=== PATIENT | male | born 1935 | race Caucasian/White ===

== ENCOUNTER → 2017-01-22 | Outpatient (CLI) | payer MEDICARE, BC ==
[~2017-01-22] MED LIST: ASCO-297 PO; ZINC50TA PO
[2017-01-22 18:57] LABS: BASOPHILS % (AUTO) 0.7 % (0-2); EOSINOPHILS # (AUTO) 0.3 T/MM3 (0-0.5); EOSINOPHILS % (AUTO) 4.9 % (0-4); HCT - HEMATOCRIT 36.6 % (41-53); HGB - HEMOGLOBIN 11.4 GM/DL (13.5-17.5); IMMATURE GRANULOCYTE # (AUTO) 0.01 T/MM3 (0.00-0.03); IMMATURE GRANULOCYTE % (AUTO) 0.2 % (0.0-0.5); LYMPHOCYTES # (AUTO) 1.3 T/MM3 (1-4.8); LYMPHOCYTES % (AUTO) 23.5 % (23-45); MEAN CORPUSCULAR HGB 32.1 UUG (26-34); MEAN CORPUSCULAR HGB CONC(MCHC 31.1 GM/DL (31-37); MEAN CORPUSCULAR VOLUME 103.1 UM3 (80-100); MEAN PLATELET VOLUME 11.8 UM3 (9.4-12.4); MONOCYTES # (AUTO) 0.6 T/MM3 (0-0.8); MONOCYTES % (AUTO) 10.1 % (0-9.0); NEUTROPHILS #(AUTO)-ABSOLUTE 3.4 T/MM3 (1.8-7.7); NEUTROPHILS % (AUTO) 60.6 % (33-66); RED BLOOD COUNT 3.55 M/MM3 (4.50-5.90); WBC - WHITE BLOOD COUNT 5.7 T/MM3 (4.5-11.0)
[2017-01-22 19:05] LABS: ALBUMIN 3.8 G/DL (3.5-5.0); ALBUMIN/GLOBULIN RATIO 1.2 RATIO (1.1-2.2); ALKALINE PHOSPHATASE 70 U/L (38-126); ALT (SGPT) 23 U/L (21-72); ANION GAP 15 MEQ/L (5-15); AST (SGOT) 26 U/L (17-59); BUN/CREATININE RATIO 22 RATIO (6-26); CALCIUM 9.1 MG/DL (8.4-10.2); CHLORIDE 106 MEQ/L (98-107); CO2 - CARBON DIOXIDE 26 MEQ/L (22-30); CREATININE 1.5 MG/DL (0.8-1.5); GLOMERULAR FILTRATION RATE 45; GLUCOSE 109 MG/DL (75-110); MAGNESIUM 2.3 MG/DL (1.6-2.3); POTASSIUM 4.5 MEQ/L (3.6-5); SODIUM 147 MEQ/L (134-144); TOTAL PROTEIN 7.1 G/DL (6.3-8.2)
[2017-01-22 19:14] LABS: PROBNP 3840 PG/ML (0-175)
--- NOTE | 2017-01-23 09:08 | DI ---
INDICATION: ITS.REASON: J20.9 ACUTE BRONCHITIS PROCEDURE: CHEST 2-VIEWS UPRIGHT (PA \T\ LAT) Encounter: Initial COMPARISON: None FINDINGS: Mild interstitial prominence in the right base without focal lobar consolidation. There is no pleural effusion or pneumothorax. The heart size, mediastinal contours and pulmonary vascularity are within normal limits. Chronic rotator cuff tears. Degenerative change in the spine. IMPRESSION: Mild right basilar opacity could be due to atypical pneumonia/bronchitis. .
== END ==
LOC: IMA 18:06
PROVIDERS: ATTEND Family Medicine
DX: R91.8 Other nonspecific abnormal finding of lung field (principal); R01.0 Benign and innocent cardiac murmurs; R53.83 Other fatigue; J20.9 Acute bronchitis, unspecified
CPT/HCPCS: 36415; 80053; 83735; 83880; 84443; 84484; 85025; 93005

== ENCOUNTER → 2017-02-06 | Outpatient (CLI) | payer MEDICARE, BC ==
--- NOTE | 2017-02-06 10:23 | DI ---
INDICATION: ITS.REASON: J18.9 PNEUMONIA, UNSPECIFIED ORGANISM PROCEDURE: CHEST 2-VIEWS UPRIGHT (PA \T\ LAT) Encounter: Initial COMPARISON: January 22, 2017 FINDINGS: Prior right basilar airspace disease has cleared. No new airspace consolidation. No pleural effusion or pneumothorax. Heart size and mediastinal contours are stable. Tortuous ectatic thoracic aorta. Impression: Clearance of the right lower lobe infiltrate. .
== END ==
LOC: IMA 09:54
PROVIDERS: ATTEND Family Medicine
DX: J18.9 Pneumonia, unspecified organism (principal)

== ENCOUNTER → 2017-02-23 | Outpatient (CLI) | payer MEDICARE, BC ==
[2017-02-23 10:18] LABS: BASOPHILS % (AUTO) 0.7 % (0-2); EOSINOPHILS # (AUTO) 0.2 T/MM3 (0-0.5); EOSINOPHILS % (AUTO) 4.2 % (0-4); HCT - HEMATOCRIT 38.3 % (41-53); HGB - HEMOGLOBIN 12.3 GM/DL (13.5-17.5); IMMATURE GRANULOCYTE # (AUTO) 0.01 T/MM3 (0.00-0.03); IMMATURE GRANULOCYTE % (AUTO) 0.2 % (0.0-0.5); LYMPHOCYTES # (AUTO) 1.6 T/MM3 (1-4.8); LYMPHOCYTES % (AUTO) 28.2 % (23-45); MEAN CORPUSCULAR HGB 32.5 UUG (26-34); MEAN CORPUSCULAR HGB CONC(MCHC 32.1 GM/DL (31-37); MEAN CORPUSCULAR VOLUME 101.1 UM3 (80-100); MEAN PLATELET VOLUME 11.5 UM3 (9.4-12.4); MONOCYTES # (AUTO) 0.5 T/MM3 (0-0.8); MONOCYTES % (AUTO) 8.1 % (0-9.0); NEUTROPHILS #(AUTO)-ABSOLUTE 3.3 T/MM3 (1.8-7.7); NEUTROPHILS % (AUTO) 58.6 % (33-66); RED BLOOD COUNT 3.79 M/MM3 (4.50-5.90); WBC - WHITE BLOOD COUNT 5.7 T/MM3 (4.5-11.0)
[2017-02-23 10:27] LABS: ALBUMIN 4.3 G/DL (3.5-5.0); ANION GAP 12 MEQ/L (5-15); BUN/CREATININE RATIO 21 RATIO (6-26); CALCIUM 9.6 MG/DL (8.4-10.2); CHLORIDE 105 MEQ/L (98-107); CO2 - CARBON DIOXIDE 29 MEQ/L (22-30); CREATININE 1.6 MG/DL (0.8-1.5); GLOMERULAR FILTRATION RATE 41; GLUCOSE 112 MG/DL (75-110); MAGNESIUM 2.5 MG/DL (1.6-2.3); PHOSPHORUS 4.2 MG/DL (2.5-4.5); POTASSIUM 4.7 MEQ/L (3.6-5); SODIUM 146 MEQ/L (134-144); URIC ACID 7.1 MG/DL (3.5-8.5)
[2017-02-23 11:18] LABS: CREATININE, URINE RANDOM 28.8 MG/DL
== END ==
LOC: LAB 10:01
PROVIDERS: ATTEND Internal Medicine Nephrology
DX: N18.3 Chronic kidney disease, stage 3 (moderate) (principal); I12.9 Hypertensive chronic kidney disease with stage 1 through stage 4 chronic kidney disease, or unspecified chronic kidney disease; E79.0 Hyperuricemia without signs of inflammatory arthritis and tophaceous disease; E55.9 Vitamin D deficiency, unspecified
CPT/HCPCS: 36415; 80069; 82306; 82570; 83735; 83970; 84156; 84550; 85025

== ENCOUNTER 2017-12-19 11:15 | Inpatient (IN) ==
[2017-12-19] MEDS ORDERED: BUMETANIDE 2.5mg/10ml INJECTION IV ONE (11:21)
[2017-12-19] MEDS ORDERED: BUMETANIDE 2.5mg/10ml INJECTION IVP ONE (11:31)
[2017-12-19 11:45] VITALS: BMI 36.3
[2017-12-19] MEDS: BUMETANIDE DRIP 12.5 MG in CONTAINER,EMPTY 50 ML IV SCH ×2 (13:10→22:56)
[2017-12-19] MEDS: SALINE FLUSH 10ml SYRINGE IV PRN (13:11)
--- NOTE | 2017-12-19 14:11 | XRay Report ---
Indication: chf PROCEDURE: XR chest 1V: Encounter: Initial Comparison: August 27, 2017 Findings: Lungs are stable and grossly clear. No pleural effusion or pneumothorax. Cardiac silhouette remains mild to moderately enlarged. Interval revision of the cardiac valve replacement. Pulmonary vascularity is grossly normal. Mediastinal contours are stable. Tortuous ectatic thoracic aorta. Impression: No acute cardiopulmonary disease. .
[2017-12-19] MEDS ORDERED: ACETAMINOPHEN 500 MG TABLET PO SCH (14:30)
[2017-12-19] MEDS ORDERED: ACETAMINOPHEN 500 MG TABLET PO PRN (15:56)
[2017-12-19] MEDS: ENOXAPARIN 40 MG/0.4 ML INJECTION SQ SCH (16:28)
[2017-12-19] MEDS: --POM--CARVEDILOL 3.125 MG TABLET PO SCH ×2 (19:54→20:02)
[2017-12-20] MEDS: ALLOPURINOL 100 MG PO SCH (08:58)
[2017-12-20] MEDS: --POM--ATORVASTATIN 10 MG TABLET PO SCH (08:59)
[2017-12-20] MEDS: --POM--CARVEDILOL 3.125 MG TABLET PO SCH ×2 (09:00→21:17)
[2017-12-20] MEDS: CHOLECALCIFEROL PO SCH (09:01)
[2017-12-20] MEDS: CYANOCOBALAMIN 1000 MCG PO SCH (09:02)
[2017-12-20] MEDS: --POM--CLOPIDOGREL 75 MG TABLET PO SCH (09:02)
[2017-12-20] MEDS: ENOXAPARIN 40 MG/0.4 ML INJECTION SQ SCH (09:04)
[2017-12-20] MEDS: --POM--ASPIRIN 325 MG TABLET PO SCH (09:40)
[2017-12-20] MEDS: ACETAMINOPHEN 500 MG TABLET PO SCH (12:46)
[2017-12-20 15:35] VITALS: RESP 18
[2017-12-20] MEDS: BUMETANIDE DRIP 12.5 MG in CONTAINER,EMPTY 50 ML IV SCH (16:31)
[2017-12-20] MEDS: FUROSEMIDE 100 MG/10 ML INJECTION IVP SCH (17:01)
--- NOTE | 2017-12-20 18:51 | Cardiology Progress Note ---
<Liliam Waller M - Last Filed: 12/21/17 18:25> Subjective Principal diagnosis: CHF Interval history: Patient is seen in follow up for CHF. He is in his room on Medical, his is at the bedside. He states he is able to breathe much easier following diuresis of fluid. He denies chest pain, pressure or tightness. Discussed importance of adherence to low sodium, fluid restricted diet. Will have dietary consult for education. Exam Vital signs: Temperature 95.7 F L 12/20/17 15:33 Pulse Rate 68 12/20/17 15:33 Respiratory Rate 18 12/20/17 15:33 Blood Pressure 104/56 12/20/17 15:33 Pulse Oximetry 94 12/20/17 15:33 Inpatient Medications: Generic Name Dose Route Start Last Admin Trade Name Freq PRN Reason Stop Dose Admin Acetaminophen 1,000 mg 12/20/17 09:00 12/20/17 12:46 Tylenol PO Not Given DAILY SUMIT Acetaminophen 1,000 mg 12/19/17 15:56 Tylenol PO TID PRN Discomfort Allopurinol 100 mg 12/20/17 09:00 12/20/17 08:58 Zyloprim PO 100 mg DAILY SUMIT Administration Aspirin 325 mg 12/20/17 09:00 12/20/17 09:40 Asa PO 325 mg DAILY SUMIT Administration Atorvastatin Calcium 10 mg 12/20/17 09:00 12/20/17 08:59 Lipitor PO 10 mg DAILY SUMIT Administration Carvedilol 6.25 mg 12/19/17 21:00 12/20/17 09:00 Coreg PO 6.25 mg BID SUMIT Administration Cholecalciferol 0 unit 12/20/17 09:00 12/20/17 09:01 Vit. D-3 PO 1,000 unit DAILY SUMIT Administration Clopidogrel Bisulfate 75 mg 12/20/17 09:00 12/20/17 09:02 Plavix PO 75 mg DAILY SUMIT Administration Cyanocobalamin 0 mcg 12/20/17 09:00 12/20/17 09:02 Vit. B-12 PO 500 mcg DAILY SUMIT Administration Enoxaparin Sodium 40 mg 12/19/17 13:15 12/20/17 09:04 Lovenox SQ 40 mg DAILY SUMIT Administration Furosemide 80 mg 12/20/17 17:00 12/20/17 17:01 Lasix 100 Mg/10 Ml IVP 80 mg Q8HR SUMIT Administration Potassium Chloride 20 meq 12/20/17 12:00 12/20/17 17:03 K-Dur 20 Meq Tablet PO 20 meq TIDWM SUMIT Administration Sodium Chloride 10 - 80 ml 12/19/17 11:21 12/19/17 13:11 Iv Flush IV 20 ml PRN PRN Administration Flushing Discontinued Medications Generic Name Dose Route Start Last Admin Trade Name Freq PRN Reason Stop Dose Admin Acetaminophen 1,000 mg 12/19/17 14:30 12/19/17 15:58 Tylenol PO Not Given Q5H SUMIT Bumetanide 2 mg 12/19/17 11:31 12/19/17 13:05 Bumex 2.5 Mg/10 Ml Inj IVP 12/19/17 11:32 2 mg O ONE Administration Bumetanide 12.5 mg/ IV 50 mls @ 2 mls/hr 12/19/17 11:45 12/20/17 16:31 Solution IV Infused Q24H SUMIT Infusion 0.5 MG/HR Potassium Chloride 20 meq 12/20/17 08:00 12/20/17 08:57 K-Dur 20 Meq Tablet PO 20 meq WB SUMIT Administration - Constitutional no acute distress, obese, cooperative - Routine HEENT Exam Head: Present: normocephalic ENT: Present: mucous membranes moist - Routine Neck Exam Present: JVD. Absent: carotid bruit - Routine Chest/Breast/Axilla Exam Chest wall: Absent: tenderness - Routine Respiratory Exam Present: decreased breath sounds. Absent: dyspnea - Routine Cardiovascular Exam Present: RRR, no murmur - Routine Abdominal Exam Present: soft, normoactive bowel sounds - Routine Extremities Exam Present: edema - Routine Neurological Exam Present: alert, oriented X3 - Routine Psychiatric Exam Present: normal affect, normal thought process - Additional findings Additional findings: Acetaminophen (Tylenol) 1,000 mg PO DAILY [facility] Last Admin: 12/20/17 12:46 Dose: Not Given Acetaminophen (Tylenol) 1,000 mg PO TID PRN PRN Reason: Discomfort Allopurinol (Zyloprim) 100 mg PO DAILY [facility] Last Admin: 12/20/17 08:58 Dose: 100 mg Aspirin (Asa) 325 mg PO DAILY [facility] Last Admin: 12/20/17 09:40 Dose: 325 mg Atorvastatin Calcium (Lipitor) 10 mg PO DAILY [facility] Last Admin: 12/20/17 08:59 Dose: 10 mg Carvedilol (Coreg) 6.25 mg PO BID [facility] Last Admin: 12/20/17 09:00 Dose: 6.25 mg Cholecalciferol (Vit. D-3) 0 unit PO DAILY [facility] Last Admin: 12/20/17 09:01 Dose: 1,000 unit Clopidogrel Bisulfate (Plavix) 75 mg PO DAILY [facility] Last Admin: 12/20/17 09:02 Dose: 75 mg Cyanocobalamin (Vit. B-12) 0 mcg PO DAILY [facility] Last Admin: 12/20/17 09:02 Dose: 500 mcg Enoxaparin Sodium (Lovenox) 40 mg SQ DAILY [facility] Last Admin: 12/20/17 09:04 Dose: 40 mg Furosemide (Lasix 100 Mg/10 Ml) 80 mg IVP Q8HR [facility] Last Admin: 12/20/17 17:01 Dose: 80 mg Potassium Chloride (K-Dur 20 Meq Tablet) 20 meq PO TIDWM [facility] Last Admin: 12/20/17 17:03 Dose: 20 meq Sodium Chloride (Iv Flush) 10 - 80 ml IV PRN PRN PRN Reason: Flushing Last Admin: 12/19/17 13:11 Dose: 20 ml - Urinary Catheter Management Urethral Cath placed during this visit: yes Insertion date: 12/19/17 Insertion time: 15:05 Results 12/21/17 04:29 12/21/17 04:30 CBC 12/20/17 Range/Units 04:35 WBC 5.4 (4.5-11.0) T/MM3 RBC 3.36 L (4.50-5.90) M/MM3 Hgb 10.6 L (13.5-17.5) GM/DL Hct 34.3 L (41-53) % Plt Count 139 (130-400) T/MM3 Comprehensive Metabolic Panel 12/20/17 Range/Units 04:35 Sodium 145 H (134-144) MEQ/L Potassium 3.8 D (3.6-5) MEQ/L Chloride 101 D (98-107) MEQ/L Carbon Dioxide 32 H D (22-30) MEQ/L BUN 35.0 H (9-20) MG/DL Creatinine 1.4 D (0.8-1.5) mg/dL Glucose 105 (75-110) MG/DL Calcium 9.2 (8.4-10.2) MG/DL Intake and Output 12/20/17 12/20/17 12/20/17 06:59 14:59 22:59 Intake Total 13.4 / 13.4 850 / 850 611.733 / 611.733 Output Total 3175 / 3175 950 / 950 500 / 500 Balance -3161.6 / -3161.6 -100 / -100 111.733 / 111.733 Intake: IV 13.4 / 13.4 21.733 / 21.733 Bumetanide Drip 12.5 mg In 13.4 / 13.4 21.733 / 21.733 Container,Empty 50 ml @ 0.5 MG/ HR 2 mls/hr IV Q24H [facility] Rx#: [id number] Oral 850 / 850 590 / 590 Output: Urine Amount (Catheter) 3175 / 3175 950 / 950 500 / 500 Other: Urine Appearance Clear Clear Urine Color Yellow Yellow Urine Odor Normal Weight 240 lb 1.334 oz Patient Weight 12/21/17 06:59 Weight 240 lb 1.334 oz - Imaging and Cardiology Echo: pending Imaging & Cardiology Narrative: Date of Exam: 12/19/17 Ordering Provider: Liliam Waller APRN Type of Exam(s): XR chest 1V Reason for Exam(s): chf Indication: chf PROCEDURE: XR chest 1V: Encounter: Initial Comparison: August 27, 2017 Findings: Lungs are stable and grossly clear. No pleural effusion or pneumothorax. Cardiac silhouette remains mild to moderately enlarged. Interval revision of the cardiac valve replacement. Pulmonary vascularity is grossly normal. Mediastinal contours are stable. Tortuous ectatic thoracic aorta. Impression: No acute cardiopulmonary disease. 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 <Emery Smith - Last Filed: 12/26/17 12:44> Exam Vital signs: Temperature 95.8 F L 12/21/17 14:40 Pulse Rate 98 12/21/17 16:00 Respiratory Rate 18 12/21/17 14:40 Blood Pressure 130/35 12/21/17 14:40 Pulse Oximetry 94 12/21/17 14:40 Inpatient Medications: Discontinued Medications Generic Name Dose Route Start Last Admin Trade Name Freq PRN Reason Stop Dose Admin Acetaminophen 1,000 mg 12/19/17 14:30 12/19/17 15:58 Tylenol PO Not Given Q5H SUMIT Acetaminophen 1,000 mg 12/20/17 09:00 12/21/17 08:48 Tylenol PO 1,000 mg DAILY SUMIT Administration Acetaminophen 1,000 mg 12/19/17 15:56 Tylenol PO TID PRN Discomfort Allopurinol 100 mg 12/20/17 09:00 12/21/17 08:54 Zyloprim PO 100 mg DAILY SUMIT Administration Aspirin 325 mg 12/20/17 09:00 12/21/17 08:48 Asa PO 325 mg DAILY SUMIT Administration Atorvastatin Calcium 10 mg 12/20/17 09:00 12/21/17 08:54 Lipitor PO 10 mg DAILY SUMIT Administration Bumetanide 2 mg 12/19/17 11:31 12/19/17 13:05 Bumex 2.5 Mg/10 Ml Inj IVP 12/19/17 11:32 2 mg O ONE Administration Carvedilol 6.25 mg 12/19/17 21:00 12/21/17 08:55 Coreg PO 6.25 mg BID SUMIT Administration Cholecalciferol 0 unit 12/20/17 09:00 12/21/17 08:52 Vit. D-3 PO 1,000 unit DAILY SUMIT Administration Clopidogrel Bisulfate 75 mg 12/20/17 09:00 12/21/17 08:53 Plavix PO 75 mg DAILY SUMIT Administration Cyanocobalamin 0 mcg 12/20/17 09:00 12/21/17 08:50 Vit. B-12 PO 500 mcg DAILY SUMIT Administration Enoxaparin Sodium 40 mg 12/19/17 13:15 12/21/17 08:47 Lovenox SQ 40 mg DAILY SUMIT Administration Furosemide 80 mg 12/20/17 17:00 12/21/17 08:34 Lasix 100 Mg/10 Ml IVP Not Given Q8HR SUMIT Furosemide 40 mg 12/21/17 17:00 12/21/17 17:14 Lasix 40 Mg Tab PO 40 mg 0900,1700 SUMIT Administration Bumetanide 12.5 mg/ IV 50 mls @ 2 mls/hr 12/19/17 11:45 12/20/17 16:31 Solution IV Infused Q24H SUMIT Infusion 0.5 MG/HR Pharmacy Consult each 12/21/17 12:02 Pharmacy Consult - Fall Risk 12/21/17 12:03 ONE TIME ONE Potassium Chloride 20 meq 12/20/17 08:00 12/20/17 08:57 K-Dur 20 Meq Tablet PO 20 meq WB SUMIT Administration Potassium Chloride 20 meq 12/20/17 12:00 12/21/17 17:15 K-Dur 20 Meq Tablet PO 20 meq TIDWM SUMIT Administration Sodium Chloride 10 - 80 ml 12/19/17 11:21 12/21/17 00:39 Iv Flush IV 10 ml PRN PRN Administration Flushing - Urinary Catheter Management Urethral Cath placed during this visit: no Results 12/21/17 04:29 12/21/17 04:30 Assessment and Plan - Assessment and Plan (1) Cardiomyopathy Status: Chronic (2) Nonrheumatic mitral valve insufficiency Status: Chronic (3) Nonrheumatic aortic valve stenosis Status: Chronic (4) Localized edema Status: Acute (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 I am involved in the formulation of the patient's plan of care. Hospital Course Summary Disclaimer: The visit summary below is not to be considered part of the above Progress Note.
[2017-12-21] MEDS: FUROSEMIDE 100 MG/10 ML INJECTION IVP SCH ×2 (00:38→08:34)
[2017-12-21] MEDS: SALINE FLUSH 10ml SYRINGE IV PRN (00:39)
[2017-12-21] MEDS: ENOXAPARIN 40 MG/0.4 ML INJECTION SQ SCH (08:47)
[2017-12-21] MEDS: --POM--ASPIRIN 325 MG TABLET PO SCH (08:48)
[2017-12-21] MEDS: ACETAMINOPHEN 500 MG TABLET PO SCH (08:48)
[2017-12-21] MEDS: CYANOCOBALAMIN 1000 MCG PO SCH (08:50)
[2017-12-21] MEDS: CHOLECALCIFEROL PO SCH (08:52)
[2017-12-21] MEDS: --POM--CLOPIDOGREL 75 MG TABLET PO SCH (08:53)
[2017-12-21] MEDS: --POM--ATORVASTATIN 10 MG TABLET PO SCH (08:54)
[2017-12-21] MEDS: ALLOPURINOL 100 MG PO SCH (08:54)
[2017-12-21] MEDS: --POM--CARVEDILOL 3.125 MG TABLET PO SCH (08:55)
[2017-12-21] MEDS ORDERED: FALL RISK - PHARMACY CONSULT MC ONE (12:02)
[2017-12-21 14:41] VITALS: BP 130/35; TEMP 95.8; O2SAT 94
[2017-12-21 16:13] VITALS: PULSE 98
[2017-12-21] MEDS ORDERED: FUROSEMIDE 40 MG TABLET PO SCH (17:00)
--- NOTE | 2017-12-21 17:01 | Discharge Summary ---
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 Hospital Course This is a general summary of the patient's hospital course. For more details refer to the complete medical record. Hospital course: Patient is seen in follow up for CHF. He is in his room on Medical, his is at the bedside. He states he is able to breathe much easier following diuresis of fluid. He denies chest pain, pressure or tightness. Discussed importance of adhearance to low sodium, fluid restricted diet. Will have dietary consult for education (1) Acute on chronic systolic (congestive) heart failure Current visit: Yes Status: Acute EF on Echo remains 30% - Continue IV diuresis Lasix 80mg IV q8h - Dietary consult for CHF diet education (2) Cardiomyopathy Current visit: No Status: Chronic EF 30% - Continue to wear Life Vest - Will need permanent internal defibrillator implant (3) Nonrheumatic mitral valve insufficiency Current visit: No Status: Acute (4) Nonrheumatic aortic valve stenosis Current visit: No Status: Acute (5) Localized edema Current visit: Yes Status: Acute (6) Atherosclerotic heart disease of [place] coronary artery without angina pectoris Current visit: Yes Status: Acute Exam Vital signs: Temperature 95.8 F L 12/21/17 14:40 Pulse Rate 98 12/21/17 16:00 Respiratory Rate 18 12/21/17 14:40 Blood Pressure 130/35 12/21/17 14:40 Pulse Oximetry 94 12/21/17 14:40 - Constitutional no acute distress, well nourished, cooperative - Routine HEENT Exam Head: Present: normocephalic ENT: Present: mucous membranes moist - Routine Neck Exam Absent: JVD, carotid bruit - Routine Chest/Breast/Axilla Exam Chest wall: Absent: tenderness - Routine Respiratory Exam Present: CTA bilaterally. Absent: dyspnea, rales, wheezes - Routine Cardiovascular Exam Present: RRR, no murmur - Routine Abdominal Exam Present: soft, normoactive bowel sounds - Routine Extremities Exam Present: edema - Routine Skin Exam Present: intact, dry, warm - Routine Neurological Exam Present: alert, oriented X3 - Routine Psychiatric Exam Present: normal affect, normal thought process Results 12/21/17 04:29 12/21/17 04:30 CBC 12/21/17 Range/Units 04:29 WBC 5.2 (4.5-11.0) T/MM3 RBC 3.62 L (4.50-5.90) M/MM3 Hgb 11.4 L (13.5-17.5) GM/DL Hct 36.7 L (41-53) % Plt Count 140 (130-400) T/MM3 Comprehensive Metabolic Panel 12/21/17 Range/Units 04:30 Sodium 146 H (134-144) MEQ/L Potassium 4.1 (3.6-5) MEQ/L Chloride 100 (98-107) MEQ/L Carbon Dioxide 34 H (22-30) MEQ/L BUN 39.0 H (9-20) MG/DL Creatinine 1.5 (0.8-1.5) mg/dL Glucose 124 H (75-110) MG/DL Calcium 9.5 (8.4-10.2) MG/DL Intake and Output 12/21/17 12/21/17 12/21/17 06:59 14:59 22:59 Intake Total 100 / 100 910 / 910 Output Total 1350 / 1350 300 / 300 Balance -1250 / -1250 610 / 610 Intake: Oral 100 / 100 910 / 910 Output: Urine Amount (Catheter) 1350 / 1350 300 / 300 Other: Urine Appearance Clear Clear Urine Color Yellow Light Sue Urine Odor Normal Weight 235 lb 0.204 oz Patient Weight 12/22/17 06:59 Weight 235 lb 0.204 oz - Imaging and Cardiology Imaging & Cardiology Narrative: Date of Exam: 12/19/17 Ordering Provider: Liliam Waller APRN Type of Exam(s): XR chest 1V Reason for Exam(s): chf Indication: chf PROCEDURE: XR chest 1V: Encounter: Initial Comparison: August 27, 2017 Findings: Lungs are stable and grossly clear. No pleural effusion or pneumothorax. Cardiac silhouette remains mild to moderately enlarged. Interval revision of the cardiac valve replacement. Pulmonary vascularity is grossly normal. Mediastinal contours are stable. Tortuous ectatic thoracic aorta. Impression: No acute cardiopulmonary disease. 12/21/17 16:59 Discharge Plan - Med Rec/Dispo Referrals/Follow Up: Emery Smith MD [Physician] - 2 Weeks Truv Instructions: [facility] [place] Congestive Heart Failure Prescriptions: New Furosemide [Lasix 40 mg Tab] 40 mg PO 0900,1700 #60 tab Continue Allopurinol [Zyloprim] 100 mg PO DAILY Potassium Chloride [K-DUR 20 mEq Tablet] 1 tab PO DAILY Clopidogrel [Plavix] 75 mg PO DAILY #30 tab Atorvastatin [Lipitor] 1 tab PO DAILY Clopidogrel [Plavix] 1 tab PO DAILY Aspirin [ASA] 1 tab PO DAILY Acetaminophen [Tylenol Arthritis] 650 mg PO DAILY Cholecalciferol (Vitamin D3) [Vitamin D3] 1 cap PO DAILY Cyanocobalamin (Vitamin B-12) [Vitamin B-12] 1 tab PO DAILY Carvedilol [Coreg] 6.25 mg PO BID Acetaminophen [Tylenol] 1,000 mg PO Q5H PRN PRN Reason: Pain Discontinued Furosemide [Lasix] 1 tab PO BID - Disposition 01 Discharged Home, Self-Care - Dismissal Complete Discharge Instructions are:: Complete <Emery Smith - Last Filed: 12/26/17 12:58> Discharge Information Date of admission: 12/21/17 14:53 Attending Physician: Emery Smith MD Primary care physician: Montana Wells MD Consults: 12/20/17 15:18 Dietary Consult [CONS] Routine Comment: Reason For Exam: CHF dietary restrictions - Discharge Diagnosis (1) Cardiomyopathy Status: Chronic (2) Nonrheumatic mitral valve insufficiency Status: Chronic (3) Nonrheumatic aortic valve stenosis Status: Chronic (4) Localized edema Status: Acute (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 For more details refer to the complete medical record. Exam Vital signs: Temperature 95.8 F L 12/21/17 14:40 Pulse Rate 98 12/21/17 16:00 Respiratory Rate 18 12/21/17 14:40 Blood Pressure 130/35 12/21/17 14:40 Pulse Oximetry 94 12/21/17 14:40 Results 12/21/17 04:29 12/21/17 04:30 Attestation Narriative - Attestation Attestation Narrative: 12/26/17 12:58 Recommendation After examining the patient I agree with the above assessment. I am involved in the formulation of the patient's plan of care.
--- NOTE | 2017-12-21 20:23 | Echocardiogram ---
DATE OF PROCEDURE December 21, 2017 This is a two-dimensional echo with spectral Doppler, color-flow and M-mode. It was obtained in a patient with cardiomyopathy and valvular disease. Left atrium is dilated. Left ventricular end-diastolic dimension is normal. Left ventricular wall thickness is normal. Global hypokinesia is present with ejection fraction of about 30%. Right atrium is dilated. Right ventricle is normal. Aortic root dimension is normal. Mitral annulus is calcified. Mitral valve leaflets are thickened with what appears to be a mitral valve clip. Mild mitral regurgitation is present. Aortic valve is a bioprosthetic valve, appropriately seated with appropriate function with no stenosis or insufficiency. Tricuspid valve shows mild tricuspid regurgitation with mild pulmonary hypertension with estimated pulmonary artery systolic pressure of 37. Pulmonary valve shows mild pulmonary insufficiency. There is no pericardial effusion. IMPRESSION 1. Global hypokinesia with ejection fraction of about 30%. 2. Mitral annulus calcification with mitral valve clip suggestive of prior repair with mild mitral regurgitation. 3. Bioprosthetic aortic valve with appropriate function with no stenosis or insufficiency. 4. Mild tricuspid regurgitation with mild pulmonary hypertension with estimated pulmonary artery systolic pressure of 37. 5. Mild pulmonary insufficiency. 6. Biatrial dilation. MTDD
== END 2017-12-21 18:55 | disposition home or self-care (01) | DRG 292 ==
LOC: MED
PROVIDERS: ADMIT Internal Medicine Cardiovascular Disease; ATTEND Internal Medicine Cardiovascular Disease